=== PATIENT | female | born 1955 | race Two or more races ===

== ENCOUNTER 2017-07-22 08:11 | Outpatient (CLI) | payer OTHER | END 2017-07-22 08:36 | disposition home or self-care (01) | LOC: MAMO-SONO 08:11 | DX: Z12.31 Encounter for screening mammogram for malignant neoplasm of breast (principal); R92.2 Inconclusive mammogram; E03.8 Other specified hypothyroidism; E04.1 Nontoxic single thyroid nodule ==

== ENCOUNTER → 2018-07-07 | Outpatient (CLI) | payer OTHER | END | disposition home or self-care (01) | LOC: SONOGRAMA 08:13 → MAMO-SONO 09:15 | DX: E03.8 Other specified hypothyroidism (principal); E04.8 Other specified nontoxic goiter ==

== ENCOUNTER 2019-09-19 12:23 | Outpatient (CLI) | payer OTHER | END 2019-09-19 13:25 | disposition home or self-care (01) | LOC: NUCLEAR 12:23 | PROVIDERS: ATTEND Internal Medicine | DX: M81.0 Age-related osteoporosis without current pathological fracture (principal) ==

== ENCOUNTER 2019-09-19 13:36 | Outpatient (CLI) | payer OTHER | END 2019-09-19 13:46 | disposition home or self-care (01) | LOC: MAMO-SONO 13:36 | PROVIDERS: ATTEND Internal Medicine | DX: E04.1 Nontoxic single thyroid nodule (principal); Z12.31 Encounter for screening mammogram for malignant neoplasm of breast ==

== ENCOUNTER → 2019-12-21 | Outpatient (CLI) | payer OTHER | END | disposition home or self-care (01) | LOC: TOM 09:51 | PROVIDERS: ATTEND Obstetrics & Gynecology | DX: K57.90 Diverticulosis of intestine, part unspecified, without perforation or abscess without bleeding (principal); R10.84 Generalized abdominal pain ==

== ENCOUNTER 2021-04-15 13:18 | Outpatient (CLI) | payer OTHER | END 2021-04-15 13:25 | disposition home or self-care (01) | LOC: MAMO-SONO 13:18 | DX: Z12.31 Encounter for screening mammogram for malignant neoplasm of breast (principal) ==